=== PATIENT | male | born 1950 | race Caucasian/White ===

== ENCOUNTER 2017-07-13 06:38 | Emergency (ER) | payer MEDICARE, OTHER ==
[2017-07-13 06:45] VITALS: BP 175/87
[2017-07-13] MEDS ORDERED: Acetaminophen/HYDROcodone 325-10 MG Tab PO ONE (07:06)
--- NOTE | 2017-07-13 07:28 | EDM.PDOC ---
ED HPI GENERAL MEDICAL PROBLEM - General Chief Complaint: Genitourinary Problem Stated Complaint: URINARY FREQ. W/PAIN AT LEFT GROIN/ABD/FLANK Time Seen by Provider: 07/13/17 07:00 Source of Information: Reports: Patient, Family (), RN, RN Notes Reviewed History Limitations: Reports: No Limitations - History of Present Illness INITIAL COMMENTS - FREE TEXT/NARRATIVE: Arrives from home with c/o waking around 0400HRS with urinary frequency, and 8/ 10 pain from the left groin & bladder area up through the left abdomen and into the left flank. Denies fever, chills, diarrhea, or constipation. Denies urine being cloudy, dark, bloody, or pink. Admits to mild nausea when the pain was most severe. Denies Hx of urinary or prostate disease. Onset: Today Duration: Constant, Waxing/Waning Location: Reports: Abdomen, Pelvis, Radiates to (left abdomen & flank) Quality: Reports: Ache, Pressure Severity: Severe Improves with: Reports: None Worsens with: Reports: None Associated Symptoms: Reports: No Other Symptoms Bladder Pain Score (Numeric/FACES): 8 - Related Data Allergies Allergy/AdvReac Type Severity Reaction Status Date / Time No Known Allergies Allergy Verified 07/13/17 06:45 Home Meds: Home Meds Psyllium with Sucrose [Metamucil] 1 scoop PO BEDTIME 12/09/13 [History] Naproxen [Naproxen] 500 mg PO BID 05/11/16 [History] Ranitidine [Zantac] 150 mg PO DAILY 05/30/16 [History] Budesonide/Formoterol Fumarate [Symbicort 160-4.5 Mcg Inhaler] 2 puff IH BID 12/23 [History] DULoxetine HCl [Duloxetine HCl] 30 mg PO DAILY 07/13/17 [History] Umeclidinium [place] [Incruse Ellipta*] 1 puff INH DAILY 07/13/17 [History] Past Medical History HEENT History: Reports: None Cardiovascular History: Reports: None Respiratory History: Reports: Asthma, COPD Gastrointestinal History: Reports: GERD Genitourinary History: Reports: None Musculoskeletal History: Reports: Back Pain, Chronic, Osteoarthritis Neurological History: Reports: None Psychiatric History: Reports: None Endocrine/Metabolic History: Reports: Obesity/BMI 30+ Hematologic History: Reports: None Immunologic History: Reports: None Oncologic (Cancer) History: Reports: None Dermatologic History: Reports: None - Past Surgical History Musculoskeletal Surgical History: Reports: Other (See Below) Social & Family History - Family History Family Medical History: Noncontributory - Tobacco Use Smoking Status *Q: Never Smoker Years of Tobacco use: 40 Used Tobacco, but Quit: Yes Month Tobacco Last Used: 2 Second Hand Smoke Exposure: No - Caffeine Use Caffeine Use: Reports: Coffee, Soda - Alcohol Use Days Per Week of Alcohol Use: 0 - Recreational Drug Use Recreational Drug Use: No - Living Situation & Occupation Living situation: Reports: , with Family Occupation: Retired ED ROS GENERAL - Review of Systems Review Of Systems: ROS reveals no pertinent complaints other than HPI. ED EXAM, RENAL/ - Physical Exam Exam: See Below Exam Limited By: No Limitations General Appearance: Alert, WD/WN, No Apparent Distress, Obese, Other ( uncomfortable but non-toxic appearing) Throat/Mouth: Normal Voice, No Airway Compromise Head: Atraumatic, Normocephalic Respiratory/Chest: No Respiratory Distress Cardiovascular: Regular Rate, Rhythm GI/Abdominal: Normal Bowel Sounds, Soft, No Distention, No Abnormal Bruit. No: Guarding Course - Vital Signs Last Recorded V/S: Last Vital Signs Temp 35.1 C L 07/13/17 06:41 Pulse 80 07/13/17 06:41 Resp 18 07/13/17 06:41 BP 175/87 H 07/13/17 06:41 Pulse Ox 99 07/13/17 06:41 - Orders/Labs/Meds Orders: Active Orders 24 hr Category Date Time Status Abdomen Pelvis wo Cont [CT] Urgent Exams 07/13/17 07:07 Ordered Tamsulosin [Flomax] Med 07/13/17 08:59 Once 0.4 mg PO ONETIME ONE Labs: Laboratory Tests 07/13/17 07/13/17 07/13/17 Range/Units 06:55 07:25 07:25 WBC 7.3 (5.0-10.0) 10^3/uL RBC 5.42 (4.6-6.2) 10^6/uL Hgb 15.2 D (14.0-18.0) g/dL Hct 46.5 (40.0-54.0) % MCV 85.8 (80-100) fL MCH 28.0 (27.0-34.0) pg MCHC 32.7 L (33.0-35.0) g/dL Plt Count 209 D (150-450) 10^3/uL Neut % (Auto) 61.8 (42.2-75.2) % Lymph % (Auto) 24.0 (20.5-50.1) % [place] % (Auto) 10.6 H (2-8) % Eos % (Auto) 3.3 H (1.0-3.0) % Baso % (Auto) 0.3 (0.0-1.0) % Sodium 140 (135-145) mmol/L Potassium 3.5 L (3.6-5.0) mmol/L Chloride 103 (101-111) mmol/L Carbon Dioxide 25.0 (21.0-31.0) mmol/L Anion Gap 15.5 BUN 18 (7-18) mg/dL Creatinine 1.5 H (0.6-1.3) mg/dL Est Cr Clr Drug Dosing 50.90 mL/min Estimated GFR (MDRD) 47 BUN/Creatinine Ratio 12.00 Glucose 123 H (74-105) mg/dL Calcium 9.0 (8.4-10.2) mg/dl Total Bilirubin 0.8 (0.2-1.0) mg/dL AST 45 H (10-42) IU/L ALT 64 H (10-60) IU/L Alkaline Phosphatase 103 (42-121) IU/L Total Protein 7.5 (6.7-8.2) g/dl Albumin 4.0 (3.2-5.5) g/dl Globulin 3.5 Albumin/Globulin Ratio 1.14 Urine Color Yellow (YELLOW) Urine Appearance Clear (CLEAR) Urine pH 5.5 (5.0-9.0) Ur Specific [place] >= 1.030 (1.005-1.030) Urine Protein Negative (NEGATIVE) Urine Glucose (UA) Negative (NEGATIVE) Urine Ketones Negative (NEGATIVE) Urine Occult Blood Negative (NEGATIVE) Urine Nitrite Negative (NEGATIVE) Urine Bilirubin Negative (NEGATIVE) Urine Urobilinogen 0.2 (0.2-1.0) mg/dL Ur Leukocyte Esterase Negative (NEGATIVE) Urine RBC Not seen /HPF Urine WBC 0-5 (0-5/HPF) /HPF Ur Epithelial Cells Occasional /HPF Urine Bacteria Rare (0-FEW/HPF) /HPF Urine Mucus Occasional /LPF Meds: Medications Discontinued Medications Generic Name Dose Route Start Last Admin Trade Name Andrés PRN Reason Stop Dose Admin Hydrocodone Bitart/Acetaminophen 1 tab 07/13/17 07:06 07/13/17 07:13 [place] 325-10 Mg PO 07/13/17 07:07 1 tab ONETIME ONE Administration Hydromorphone HCl 1 mg 07/13/17 07:31 07/13/17 07:51 Dilaudid IVPUSH 07/13/17 07:32 1 mg ONETIME ONE Administration Ketorolac Tromethamine 30 mg 07/13/17 07:31 07/13/17 07:49 Toradol IVPUSH 07/13/17 07:32 30 mg ONETIME ONE Administration Ondansetron HCl 4 mg 07/13/17 07:31 07/13/17 07:49 Zofran IV 07/13/17 07:32 4 mg ONETIME ONE Administration - Radiology Interpretation Free Text/Narrative:: CT Abd/Pelvis: 2mm x 4mm x 4mm stone at left UVJ w/hydronephronephrosis, fatty liver infiltrate, osteopenia w/L4 vert. body compression per Rad. report. CT Results Date: 07/13/17 CT Results Time: 08:43 Departure - Departure Time of Disposition: 09:01 Disposition: Home, Self-Care 01 Condition: Good Clinical Impression: Calculus of kidney and ureter, Kidney stone - Discharge Information Instructions: Kidney Stones, [id number] Forms: ED Department Discharge Additional Instructions: Rx: Flomax 0.4mg Rx: Oxycodone APAP 10mg/325mg *Do not drive while under the influence of this medication. Rx: Zofran 4mg Rx: Cipro 500mg Drink plenty of water. Follow up with your doctor in clinic in the next 5 to 7 days for recheck. Have your doctor review your lab results and CT scan report from today's ER visit at your appointment. Ask your doctor to about the incidental findings in the ER of elevated liver enzymes and fatty liver infiltrate on CT scan, and of osteopenia and 4th lumbar vertebral compression fracture. Return to the ER if you develop a fever, have uncontrolled pain, or cannot pass your urine. - My Orders Last 24 Hours: My Active Orders 07/13/17 07:07 Abdomen Pelvis wo Cont [CT] Urgent 07/13/17 08:59 Tamsulosin [Flomax] 0.4 mg PO ONETIME ONE - Assessment/Plan Last 24 Hours: My Active Orders 07/13/17 07:07 Abdomen Pelvis wo Cont [CT] Urgent 07/13/17 08:59 Tamsulosin [Flomax] 0.4 mg PO ONETIME ONE
[2017-07-13] MEDS ORDERED: Ondansetron 4 MG/2 ML SDV IV ONE (07:31)
[2017-07-13] MEDS ORDERED: Ketorolac 30 MG/ML SDV IVPUSH ONE (07:31)
[2017-07-13] MEDS ORDERED: HYDROmorphone 1 MG/ML Syringe IVPUSH ONE (07:31)
[2017-07-13] MEDS ORDERED: Tamsulosin 0.4 MG Cap.ER PO ONE (08:59)
== END 2017-07-13 09:29 | disposition home or self-care (01) ==
LOC: DL.ED 06:38
DX: N13.2 Hydronephrosis with renal and ureteral calculous obstruction (principal); J45.909 Unspecified asthma, uncomplicated; Z79.899 Other long term (current) drug therapy
CPT/HCPCS: 36415; 74176; 80053; 81001; 85025; 96374; 96375; 99284; A9270; J1170; J1885; J2405

== ENCOUNTER 2020-12-25 13:14 | Observation (INO) | payer MEDICARE, OTHER ==
[2020-12-25] MEDS ORDERED: Lactated Ringers 1,000 ML IV ONE (14:13)
[2020-12-25] MEDS ORDERED: HYDROmorphone 0.5 MG/0.5 ML Syringe IVPUSH PRN (14:14)
[2020-12-25] MEDS ORDERED: Ondansetron 4 MG/2 ML SDV IV ONE (14:14)
[2020-12-25 14:28] LABS: ANION GAP 15.8 mEq/L (7-13); CHLORIDE,CL 104 mmol/L (98-107); SODIUM,NA 142 mmol/L (136-145)
[2020-12-25] MEDS ORDERED: HYDROmorphone 0.5 MG/0.5 ML Syringe IVPUSH ONE (15:34)
[2020-12-25] MEDS ORDERED: Iopamidol 612 MG/ML 50 ML SDV IVPUSH ONE (16:25)
[2020-12-25] MEDS ORDERED: Iopamidol 612 MG/ML 100 ML Bottle IVPUSH ONE (16:25)
--- NOTE | 2020-12-25 17:35 | CR ---
PROCEDURE INFORMATION: Exam: XR Abdomen Exam date and time: 12/25/2020 3:45 PM Age: 70 years old Clinical indication: Other: Right sided pain; Additional info: R sided abd pain TECHNIQUE: Imaging protocol: XR of the abdomen. Views: Frontal supine view of the abdomen. 1 View. Total images: 2 COMPARISON: CT Abdomen Pelvis wo Cont 07/13/2017 7:15 AM FINDINGS: Limitations: The entire right and left aspects of the abdomen as well as the most inferior aspect of the pelvis not included on this examination. Gastrointestinal tract: The visualized portions of the bowel gas pattern are nonspecific. Minimal to moderate stool. Bones/joints: Old rib fractures. Degenerative changes of spine. IMPRESSION: The visualized portions of the bowel gas pattern showing nonspecific bowel gas pattern with moderate stool.
--- NOTE | 2020-12-25 17:43 | CT ---
PROCEDURE INFORMATION: Exam: CT Abdomen And Pelvis With Contrast Exam date and time: 12/25/2020 4:58 PM Age: 70 years old Clinical indication: Other: Right sided pain, wbc 11,000; Additional info: Ruq abd pain TECHNIQUE: Imaging protocol: Computed tomography of the abdomen and pelvis with contrast. Total images: 499 Radiation optimization: All CT scans at this facility use at least one of these dose optimization techniques: automated exposure control; mA and/or kV adjustment per patient size (includes targeted exams where dose is matched to clinical indication); or iterative reconstruction. Contrast material: [id number]; Contrast volume: 150 ml; Contrast route: INTRAVENOUS (IV); COMPARISON: CT Abdomen Pelvis wo Cont 07/13/2017 7:15 AM FINDINGS: Liver: Hepatic steatosis. Gallbladder and bile ducts: Normal. No calcified stones. No ductal dilation. Pancreas: Normal. No ductal dilation. Spleen: Normal. No splenomegaly. Adrenal glands: Normal. No mass. Kidneys and ureters: Bilateral perinephric stranding right greater than left. Small calculus lower pole left kidney. 5 mm calculus distal left ureter. No left hydronephrosis. There is mild right hydronephrosis and right hydroureter. Suggestion of tiny 2 mm calculus distal right ureter just proximal to the right UVJ seen on image 132, series 2. Right periureteric stranding. Stomach and bowel: Colonic diverticula. Appendix: No evidence of appendicitis. Intraperitoneal space: Unremarkable. No free air. No significant fluid collection. Vasculature: Moderate atherosclerotic changes of the abdominal aorta and branches. Lymph nodes: Unremarkable. No enlarged lymph nodes. Urinary bladder: Urachal remnant again noted. Reproductive: Unremarkable as visualized. Bones/joints: Degenerative changes lumbar spine with extensive vertebral body spurring. Soft tissues: Bilateral inguinal hernias containing fat. IMPRESSION: 1. [id number] right hydronephrosis and right hydroureter with suggestion of tiny 2 mm calculus distal right ureter. Right perinephric and right periureteric stranding. Correlate for any evidence of underlying urinary tract infection. 2. 5 mm calculus distal left ureter. No definite left hydronephrosis. 3. Hepatic steatosis. 4. See above for other details.
--- NOTE | 2020-12-25 20:08 | EDM.PDOC ---
ED HPI GENERAL MEDICAL PROBLEM - General Chief Complaint: Abdominal Pain Stated Complaint: ABD PAIN Time Seen by Provider: 12/25/20 13:30 - History of Present Illness INITIAL COMMENTS - FREE TEXT/NARRATIVE: Satnam is a 70-year-old man who presents with 3-day history of increasing right upper quadrant and right-sided abdominal pain. He states it started the day before yesterday, but got significantly worse last night and this morning. He states he barely slept at all last night because of the pain. He states it started out as a dull diffuse pain throughout his abdomen, and now has become a sharp stabbing pain in his upper abdomen on the right side including to the back and flank. He also reports a little bit of radiation into his right groin as well. He does think that he might of had a fever off and on today. Satnam has no past history of kidney stones. Right Abdominal Pain Score (Numeric/FACES): 7 - Related Data Allergies Allergy/AdvReac Type Severity Reaction Status Date / Time No Known Allergies Allergy Verified 07/13/17 06:45 Home Meds: Home Meds Psyllium with Sucrose [Metamucil] 1 scoop PO BEDTIME 12/09/13 [History] Naproxen 500 mg PO BID 05/11/16 [History] Ranitidine [Zantac] 150 mg PO DAILY 05/30/16 [History] Budesonide/Formoterol Fumarate [Symbicort 160-4.5 Mcg Inhaler] 2 puff IH BID 12/23 [History] DULoxetine HCl [Duloxetine HCl] 30 mg PO DAILY 07/13/17 [History] Umeclidinium [place] [Incruse Ellipta*] 1 puff INH DAILY 07/13/17 [History] Past Medical History HEENT History: Reports: None Cardiovascular History: Reports: None Respiratory History: Reports: Asthma, COPD Gastrointestinal History: Reports: GERD Genitourinary History: Reports: None Musculoskeletal History: Reports: Back Pain, Chronic, Osteoarthritis Neurological History: Reports: None Psychiatric History: Reports: None Endocrine/Metabolic History: Reports: Obesity/BMI 30+ Hematologic History: Reports: None Immunologic History: Reports: None Oncologic (Cancer) History: Reports: None Dermatologic History: Reports: None - Past Surgical History Musculoskeletal Surgical History: Reports: Other (See Below) Other Musculoskeletal Surgeries/Procedures:: back surgery, broken collar bone, broken ribs Social & Family History - Family History Family Medical History: No Pertinent Family History - Tobacco Use Tobacco Use Status *Q: Never Tobacco User - Caffeine Use Caffeine Use: Reports: Coffee, Soda - Recreational Drug Use Recreational Drug Use: No - Living Situation & Occupation Living situation: Reports: , with Family Occupation: Retired ED ROS GENERAL - Review of Systems Review Of Systems: Comprehensive ROS is negative, except as noted in HPI. ED EXAM, RENAL/ - Physical Exam Exam: See Below Text/Narrative:: General: Satnam is a pleasant 70-year-old man in no acute distress Oropharynx is clear, mucous membranes are tacky to dry Neck: Supple, no lymphadenopathy Heart: Regular rate and rhythm, 1 out of 6 systolic murmur heard throughout Lungs: Clear to auscultation throughout Abdomen: He is morbidly obese, he has a large diastases frontally. He does have diffuse tenderness on his right side. Normal bowel sounds heard in all 4 quadrants Plan upright x-ray of the abdomen was not all that helpful but unfortunately because of his body habitus CT of the abdomen and pelvis showed significant perinephric stranding on the right with a very small right ureteral stone and a 5 mm left ureteral stone. I discussed his case with Dr. Rizo in urology at [facility], after reviewing CT scan reviewing the clinical data with me, he stated that he would not do any kind of urological intervention with him at this time, we could manage him appropriately at our facility. Course - Vital Signs Last Recorded V/S: Last Vital Signs Temp 95.6 F L 12/25/20 14:15 Pulse 96 12/25/20 14:15 Resp 18 12/25/20 14:15 BP 150/66 H 12/25/20 14:15 Pulse Ox 100 12/25/20 14:15 - Orders/Labs/Meds Orders: Active Orders 24 hr Category Date Time Status CORONAVIRUS COVID-19 [facility]ICA [[facility]] Urgent Lab 12/25/20 19:31 Received HYDROmorphone [Dilaudid] Med 12/25/20 14:14 Active 0.5 mg IVPUSH ONETIME PRN Medication Orders Hydromorphone HCl (Hydromorphone 0.5 Mg/0.5 Ml Syringe) 0.5 mg IVPUSH ONETIME PRN PRN Reason: Pain Last Admin: 12/25/20 14:53 Dose: 0.5 mg Documented by: JOSE CARLOS Labs: Laboratory Tests 12/25/20 12/25/20 12/25/20 Range/Units 13:55 13:55 14:07 WBC 11.0 H (5.0-10.0) 10^3/uL RBC 5.14 (4.6-6.2) 10^6/uL Hgb 14.2 (14.0-18.0) g/dL Hct 43.6 (40.0-54.0) % MCV 84.8 (80-100) fL MCH 27.6 (27.0-34.0) pg MCHC 32.6 L (33.0-35.0) g/dL Plt Count 310 D (150-450) 10^3/uL Neut % (Auto) 73.8 (42.2-75.2) % Lymph % (Auto) 13.7 L (20.5-50.1) % [place] % (Auto) 10.5 H (2-8) % Eos % (Auto) 1.6 (1.0-3.0) % Baso % (Auto) 0.4 (0.0-1.0) % Sodium 142 (136-145) mmol/L Potassium 3.8 (3.5-5.1) mmol/L Chloride 104 (98-107) mmol/L Carbon Dioxide 26 (21-32) mmol/L Anion Gap 15.8 H (7-13) mEq/L BUN 14 (7-18) mg/dL Creatinine 1.59 H (0.70-1.30) mg/dL Est Cr Clr Drug Dosing TNP Estimated GFR (MDRD) 43 BUN/Creatinine Ratio 8.8 (No establ ref range) Glucose 113 H (70-99) mg/dL Calcium 9.0 (8.5-10.1) mg/dL Total Bilirubin 0.7 (0.2-1.0) mg/dL AST 37 (15-37) U/L ALT 61 (16-63) U/L Alkaline Phosphatase 124 H (46-116) U/L Total Protein 7.7 (6.4-8.2) g/dL Albumin 3.6 (3.4-5.0) g/dL Globulin 4.1 Albumin/Globulin Ratio 0.9 Lipase 49 L (73-393) U/L Urine Color Yellow (YELLOW) Urine Appearance Slightly cloudy (CLEAR) Urine pH 5.5 (5.0-9.0) Ur Specific [place] >= 1.030 (1.005-1.030) Urine Protein 30 H (NEGATIVE) Urine Glucose (UA) Negative (NEGATIVE) Urine Ketones Negative (NEGATIVE) Urine Occult Blood Moderate H (NEGATIVE) Urine Nitrite Negative (NEGATIVE) Urine Bilirubin Negative (NEGATIVE) Urine Urobilinogen 0.2 (0.2-1.0) mg/dL Ur Leukocyte Esterase Negative (NEGATIVE) Urine RBC 5-10 H /HPF Urine WBC 0-5 (0-5/HPF) /HPF Ur Epithelial Cells Rare (NOT SEEN) /HPF Urine Bacteria Rare (0-FEW/HPF) /HPF Urine Mucus Rare (NOT SEEN) /LPF Meds: Medications Generic Name Dose Route Start Last Admin Trade Name Freq PRN Reason Stop Dose Admin Hydromorphone HCl 0.5 mg 12/25/20 14:14 12/25/20 14:53 Hydromorphone 0.5 Mg/0.5 Ml Syringe IVPUSH 0.5 mg ONETIME PRN Administration Pain Discontinued Medications Generic Name Dose Route Start Last Admin Trade Name Freq PRN Reason Stop Dose Admin Hydromorphone HCl 0.5 mg 12/25/20 15:34 12/25/20 15:40 Hydromorphone 0.5 Mg/0.5 Ml Syringe IVPUSH 12/25/20 15:35 0.5 mg ONETIME ONE Administration Lactated Ringer's 1,000 mls @ 999 mls/hr 12/25/20 14:13 12/25/20 14:52 Ringers, Lactated IV 12/25/20 15:13 999 mls/hr .BOLUS ONE Administration Iopamidol 100 ml 12/25/20 16:25 12/25/20 16:38 Iopamidol 612 Mg/Ml 100 Ml Bottle IVPUSH 12/25/20 16:26 100 ml ONETIME ONE Administration Iopamidol 50 ml 12/25/20 16:25 12/25/20 16:39 Iopamidol 612 Mg/Ml 50 Ml Sdv IVPUSH 12/25/20 16:26 50 ml ONETIME ONE Administration Ondansetron HCl 4 mg 12/25/20 14:14 12/25/20 14:53 Ondansetron 4 Mg/2 Ml Sdv IV 12/25/20 14:15 4 mg ONETIME ONE Administration Departure - Departure Time of Disposition: 20:11 Disposition: Admitted As Inpatient 65 Clinical Impression: Pyelonephritis, acute, Kidney stone - Discharge Information *PRESCRIPTION DRUG MONITORING PROGRAM REVIEWED*: Not Applicable *COPY OF PRESCRIPTION DRUG MONITORING REPORT IN PATIENT CRISTIANA: Not Applicable Sepsis Event Note (ED) - Evaluation Sepsis Screening Result: No Definite Risk - Focused Exam Vital Signs: Vital Signs Temp Pulse Resp BP Pulse Ox 12/25/20 14:15 95.6 F L 96 18 150/66 H 100 - Problem List & Annotations (1) Pyelonephritis, acute SNOMED Code(s): 79367596 Code(s): N10 - ACUTE PYELONEPHRITIS Status: Acute Priority: High Current Visit: Yes Onset Date: ~12/24/20 - Problem List Review Problem List Initiated/Reviewed/Updated: Yes - My Orders Last 24 Hours: My Active Orders 12/25/20 14:14 HYDROmorphone [Dilaudid] 0.5 mg IVPUSH ONETIME PRN 12/25/20 19:31 CORONAVIRUS COVID-19 [facility] [[facility]LE[facility]] Urgent - Assessment/Plan Admission H&P: Please use this note as an admission H&P Last 24 Hours: My Active Orders 12/25/20 14:14 HYDROmorphone [Dilaudid] 0.5 mg IVPUSH ONETIME PRN 12/25/20 19:31 CORONAVIRUS COVID-19 [facility]ERICA [MOLEC] Urgent Assessment:: 1. 70-year-old man with acute pyelonephritis 2. Small left ureteral stone 3. Morbid obesity with large diastases Plan: 1. He is admitted to acute inpatient; as above, I discussed at length his case with Dr. Rizo in urology at [facility]. Based on his evaluation of his CT scan as well as the clinical data, he stated that he would not do any urological intervention with this patient at this time. 2. Unasyn, 3 g IV every 6 hours 3. Morphine, 4 mg IV every hour as needed for pain 4. Recheck CBC and renal panel in a.m. 5. VTE prophylaxis -Lovenox, 40 mg subcu daily
[2020-12-25] MEDS ORDERED: Acetaminophen 325 MG Tab PO PRN (21:10)
[2020-12-25] MEDS ORDERED: Morphine 2 MG/ML SYRINGE IVPUSH PRN (21:10)
[2020-12-25] MEDS ORDERED: Sodium Chloride 0.9% 10 ML Syringe FLUSH PRN (21:10)
[2020-12-25] MEDS ORDERED: Ondansetron 4 MG/2 ML SDV IVPUSH PRN (21:10)
[2020-12-25] MEDS ORDERED: Sodium Chloride 0.9% 1,000 ML IV SCH (21:15)
[2020-12-25] MEDS ORDERED: Piperacillin/Tazobactam 3.375 GM in Sodium Chloride 0.9% 100 ML IV SCH (21:15)
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
[2020-12-25] MEDS ORDERED: Piperacillin/Tazobactam 2.25 GM in Sodium Chloride 0.9% 50 ML IV SCH (22:00)
[2020-12-25] MEDS: Diltiazem 120 MG Cap.CD PO SCH (22:13)
[2020-12-25] MEDS: Tamsulosin 0.4 MG Cap.ER PO SCH (22:13)
[2020-12-25] MEDS ORDERED: RANITIDINE 150 MG PO PRN (22:29)
[2020-12-25] MEDS: Piperacillin/Tazobactam 2.25 GM in Sodium Chloride 0.9% 50 ML IV SCH (22:30)
[2020-12-25] MEDS ORDERED: atorvaSTATin 20 MG Tab PO SCH (22:30)
[2020-12-25] MEDS: Formoterol/Mometasone 200-5 MCG 8.8 GM Inhaler IH SCH (22:59)
[2020-12-26] MEDS: Piperacillin/Tazobactam 2.25 GM in Sodium Chloride 0.9% 50 ML IV SCH ×2 (03:58→09:34)
[2020-12-26 06:28] LABS: ANION GAP 13.7 mEq/L (7-13)
[2020-12-26] MEDS ORDERED: hydrALAZINE 25 MG Tab PO SCH (07:15)
--- NOTE | 2020-12-26 07:16 | PCM.DCSUM1 ---
Discharge Summary - Hospital Course Free Text/Narrative:: START OF DOCTOR EMAM[facility] DISCHARGE SUMMARY Date of Admission: December 25, 2020 Date of Discharge: 7:14 AM on 08/28 2020 Primary Diagnosis: Query right pyelonephritis Secondary Diagnosis: Nephrolithiasis Hepatic steatosis Osteoarthritis Chronic pain Acute versus chronic kidney disease, query baseline creatinine of approximately 1.5 Obstructive sleep apnea Osteopenia Diverticulosis COPD GERD Obesity Anxiety Depression Insomnia Hyperlipidemia Hypertension Anemia Consultations: None Condition on Discharge: Fair Disposition: The patient will be advised follow-up with nephrology within 2 weeks of discharge for diagnosis of chronic kidney disease Discharge Medications: Bactrim DS 1 tab p.o. twice daily. Quantity 14. 0 refills Zantac 150 milligrams p.o. Frequency undefined as needed dyspepsia Hydralazine 50 mg p.o. every 8 hours Cymbalta 30 mg p.o. nightly Symbicort 160/4.5 mc puffs twice daily Lipitor 20 mg p.o. nightly Tylenol PM: Unspecified dose: 2 tabs p.o. nightly END OF DOCTOR EMAM[facility] DISCHARGE SUMMARY - Discharge Data Discharge Date: 12/26/20 Discharge Disposition: Home, Self-Care 01 Condition: Fair - Referral to Home Health Primary Care Physician: Samantha Tavarez NP - Patient Instructions Diet: Heart Healthy Diet, Low Sodium Activity: As Tolerated - Discharge Plan *PRESCRIPTION DRUG MONITORING PROGRAM REVIEWED*: Not Applicable *COPY OF PRESCRIPTION DRUG MONITORING REPORT IN PATIENT CRISTIANA: Not Applicable Prescriptions/Med Rec: hydrALAZINE [Apresoline] 50 mg PO Q8H 30 Days #180 tablet Sulfamethoxazole/Trimethoprim [Bactrim Ds Tablet] 1 each PO BID 7 Days #14 tablet Home Medications: Home Meds Budesonide/Formoterol Fumarate [Symbicort 160-4.5 Mcg Inhaler] 2 puff IH BID 07/13/17 [History] DULoxetine HCl [Duloxetine HCl] 30 mg PO BEDTIME 07/13/17 [History] Acetaminophen/Diphenhydramine [Tylenol Pm Ex-Strength Caplet] 2 each PO BEDTIME 12/25/20 [History] atorvaSTATin [Lipitor] 20 mg PO DAILY 12/25/20 [History] Ranitidine [Zantac] 150 mg PO ASDIRECTED PRN 12/26/20 [Rx] Sulfamethoxazole/Trimethoprim [Bactrim Ds Tablet] 1 each PO BID 7 Days #14 tablet 12/26/20 [Rx] hydrALAZINE [Apresoline] 50 mg PO Q8H 30 Days #180 tablet 12/26/20 [Rx] Forms: ED Department Discharge Referrals: Samantha Tavarez NP [Primary Care Provider] - - Discharge Summary/Plan Comment DC Time >30 min.: No - General Info Functional Status: Reports: Pain Controlled - Review of Systems General: Reports: No Symptoms HEENT: Reports: No Symptoms Pulmonary: Reports: No Symptoms Cardiovascular: Reports: No Symptoms Gastrointestinal: Reports: No Symptoms Genitourinary: Reports: No Symptoms Musculoskeletal: Reports: No Symptoms Skin: Reports: No Symptoms Neurological: Reports: No Symptoms Psychiatric: Reports: No Symptoms - Patient Data Vitals - Most Recent: Last Vital Signs Temp 98.7 F 12/25/20 21:11 Pulse 77 12/25/20 22:13 Resp 20 12/25/20 21:11 BP 150/82 H 12/25/20 22:13 Pulse Ox 92 L 12/25/20 21:11 Weight - Most Recent: 300 lb I&O - Last 24 hours: Intake & Output 12/25/20 12/26/20 12/26/20 22:59 06:59 14:59 Intake Total 500 120 Output Total 300 Balance 500 -180 Lab Results - Last 24 hrs: Laboratory Results - last 24 hr 12/25/20 12/25/20 12/25/20 Range/Units 13:55 13:55 14:07 WBC 11.0 H (5.0-10.0) 10^3/uL RBC 5.14 (4.6-6.2) 10^6/uL Hgb 14.2 (14.0-18.0) g/dL Hct 43.6 (40.0-54.0) % MCV 84.8 (80-100) fL MCH 27.6 (27.0-34.0) pg MCHC 32.6 L (33.0-35.0) g/dL Plt Count 310 D (150-450) 10^3/uL Neut % (Auto) 73.8 (42.2-75.2) % Lymph % (Auto) 13.7 L (20.5-50.1) % [place] % (Auto) 10.5 H (2-8) % Eos % (Auto) 1.6 (1.0-3.0) % Baso % (Auto) 0.4 (0.0-1.0) % Sodium 142 (136-145) mmol/L Potassium 3.8 (3.5-5.1) mmol/L Chloride 104 (98-107) mmol/L Carbon Dioxide 26 (21-32) mmol/L Anion Gap 15.8 H (7-13) mEq/L BUN 14 (7-18) mg/dL Creatinine 1.59 H (0.70-1.30) mg/dL Est Cr Clr Drug Dosing TNP Estimated GFR (MDRD) 43 BUN/Creatinine Ratio 8.8 (No establ ref range) Glucose 113 H (70-99) mg/dL Calcium 9.0 (8.5-10.1) mg/dL Total Bilirubin 0.7 (0.2-1.0) mg/dL AST 37 (15-37) U/L ALT 61 (16-63) U/L Alkaline Phosphatase 124 H (46-116) U/L Total Protein 7.7 (6.4-8.2) g/dL Albumin 3.6 (3.4-5.0) g/dL Globulin 4.1 Albumin/Globulin Ratio 0.9 Lipase 49 L (73-393) U/L Urine Color Yellow (YELLOW) Urine Appearance Slightly cloudy (CLEAR) Urine pH 5.5 (5.0-9.0) Ur Specific [place] >= 1.030 (1.005-1.030) Urine Protein 30 H (NEGATIVE) Urine Glucose (UA) Negative (NEGATIVE) Urine Ketones Negative (NEGATIVE) Urine Occult Blood Moderate H (NEGATIVE) Urine Nitrite Negative (NEGATIVE) Urine Bilirubin Negative (NEGATIVE) Urine Urobilinogen 0.2 (0.2-1.0) mg/dL Ur Leukocyte Esterase Negative (NEGATIVE) Urine RBC 5-10 H /HPF Urine WBC 0-5 (0-5/HPF) /HPF Ur Epithelial Cells Rare (NOT SEEN) /HPF Urine Bacteria Rare (0-FEW/HPF) /HPF Urine Mucus Rare (NOT SEEN) /LPF SARS-CoV-2 RNA (JERICA) (NEGATIVE) 12/25/20 12/26/20 12/26/20 Range/Units 19:31 05:55 05:55 WBC 7.1 (5.0-10.0) 10^3/uL RBC 4.69 (4.6-6.2) 10^6/uL Hgb 12.8 L (14.0-18.0) g/dL Hct 40.7 (40.0-54.0) % MCV 86.8 (80-100) fL MCH 27.3 (27.0-34.0) pg MCHC 31.4 L (33.0-35.0) g/dL Plt Count 246 (150-450) 10^3/uL Neut % (Auto) 61.7 (42.2-75.2) % Lymph % (Auto) 21.8 (20.5-50.1) % [place] % (Auto) 12.8 H (2-8) % Eos % (Auto) 3.4 H (1.0-3.0) % Baso % (Auto) 0.3 (0.0-1.0) % Sodium 143 (136-145) mmol/L Potassium 3.7 (3.5-5.1) mmol/L Chloride 104 (98-107) mmol/L Carbon Dioxide 29 (21-32) mmol/L Anion Gap 13.7 H (7-13) mEq/L BUN 14 (7-18) mg/dL Creatinine 1.60 H (0.70-1.30) mg/dL Est Cr Clr Drug Dosing 45.10 Estimated GFR (MDRD) 43 BUN/Creatinine Ratio 8.8 (No establ ref range) Glucose 112 H (70-99) mg/dL Calcium 8.4 L (8.5-10.1) mg/dL Total Bilirubin 0.7 (0.2-1.0) mg/dL AST 24 (15-37) U/L ALT 46 (16-63) U/L Alkaline Phosphatase 100 (46-116) U/L Total Protein 6.4 (6.4-8.2) g/dL Albumin 3.0 L (3.4-5.0) g/dL Globulin 3.4 Albumin/Globulin Ratio 0.88 Lipase (73-393) U/L Urine Color (YELLOW) Urine Appearance (CLEAR) Urine pH (5.0-9.0) Ur Specific [place] (1.005-1.030) Urine Protein (NEGATIVE) Urine Glucose (UA) (NEGATIVE) Urine Ketones (NEGATIVE) Urine Occult Blood (NEGATIVE) Urine Nitrite (NEGATIVE) Urine Bilirubin (NEGATIVE) Urine Urobilinogen (0.2-1.0) mg/dL Ur Leukocyte Esterase (NEGATIVE) Urine RBC /HPF Urine WBC (0-5/HPF) /HPF Ur Epithelial Cells (NOT SEEN) /HPF Urine Bacteria (0-FEW/HPF) /HPF Urine Mucus (NOT SEEN) /LPF SARS-CoV-2 RNA ([place]) Negative (NEGATIVE) Med Orders - Current: Current Medications Acetaminophen (Acetaminophen 325 Mg Tab) 650 mg PO Q4H PRN PRN Reason: Pain (Mild 1-3)/fever Last Admin: 12/26/20 02:49 Dose: 650 mg Documented by: Acetaminophen (Acetaminophen 500 Mg Tab) 1,000 mg PO BEDTIME LARRY Atorvastatin Calcium (Atorvastatin 20 Mg Tab) 20 mg PO BEDTIME LARRY Last Admin: 12/25/20 22:59 Dose: 20 mg Documented by: Diltiazem HCl (Diltiazem 120 Mg Cap.Cd) 240 mg PO DAILY [facility] Last Admin: 12/25/20 22:13 Dose: 240 mg Documented by: Diphenhydramine HCl (Diphenhydramine 50 Mg Cap) 50 mg PO BEDTIME LARRY Duloxetine HCl (Duloxetine 30 Mg Cap) 30 mg PO BEDTIME LARRY Heparin Sodium (Porcine) (Heparin Sodium 5,000 Units/Ml Vial) 5,000 units SUBCUT Q12HR LARRY Hydralazine HCl (Hydralazine 25 Mg Tab) 50 mg PO Q8H LARRY Hydromorphone HCl (Hydromorphone 0.5 Mg/0.5 Ml Syringe) 0.5 mg IVPUSH ONETIME PRN PRN Reason: Pain Last Admin: 12/25/20 14:53 Dose: 0.5 mg Documented by: Sodium Chloride (Normal Saline) 1,000 mls @ 75 mls/hr IV ASDIRECTED LARRY Last Admin: 12/25/20 22:17 Dose: 75 mls/hr Documented by: Piperacillin Sod/Tazobactam (Sod 2.25 gm/ Sodium Chloride) 50 mls @ 100 mls/hr IV Q6H [facility] Last Infusion: 12/26/20 04:32 Dose: Infused Documented by: Mometasone Furoate/Formoterol Fumar (Formoterol/Mometasone 200-5 Mcg 8.8 Gm Inhaler) 0 puff IH BID [facility] Last Admin: 12/25/20 22:59 Dose: 2 puff Documented by: Morphine Sulfate (Morphine 2 Mg/Ml Syringe) 1 mg IVPUSH Q4H PRN PRN Reason: Pain (severe 7-10) Non-Formulary Medication (Ranitidine [Zantac]) 150 mg PO ASDIRECTED PRN PRN Reason: Heartburn Ondansetron HCl (Ondansetron 4 Mg/2 Ml Sdv) 4 mg IVPUSH Q4H PRN PRN Reason: Nausea/Vomiting Sodium Chloride (Sodium Chloride 0.9% 10 Ml Syringe) 10 ml FLUSH ASDIRECTED PRN PRN Reason: Keep Vein Open Last Admin: 12/25/20 22:23 Dose: 10 ml Documented by: Tamsulosin HCl (Tamsulosin 0.4 Mg Cap.Er) 0.4 mg PO PCBREAKFAST [facility] Last Admin: 12/25/20 22:13 Dose: 0.4 mg Documented by: Discontinued Medications Hydromorphone HCl (Hydromorphone 0.5 Mg/0.5 Ml Syringe) 0.5 mg IVPUSH ONETIME ONE Stop: 12/25/20 15:35 Last Admin: 12/25/20 15:40 Dose: 0.5 mg Documented by: Lactated Ringer's (Ringers, Lactated) 1,000 mls @ 999 mls/hr IV .BOLUS ONE Stop: 12/25/20 15:13 Last Admin: 12/25/20 14:52 Dose: 999 mls/hr Documented by: Piperacillin Sod/Tazobactam (Sod 3.375 gm/ Sodium Chloride) 100 mls @ 200 mls/hr IV Q6H [facility] Last Admin: 12/25/20 22:48 Dose: Not Given Documented by: Piperacillin Sod/Tazobactam (Sod 2.25 gm/ Sodium Chloride) 50 mls @ 100 mls/hr IV Q6H [facility] Last Admin: 12/25/20 22:49 Dose: Not Given Documented by: Iopamidol (Iopamidol 612 Mg/Ml 100 Ml Bottle) 100 ml IVPUSH ONETIME ONE Stop: 12/25/20 16:26 Last Admin: 12/25/20 16:38 Dose: 100 ml Documented by: Iopamidol (Iopamidol 612 Mg/Ml 50 Ml Sdv) 50 ml IVPUSH ONETIME ONE Stop: 12/25/20 16:26 Last Admin: 12/25/20 16:39 Dose: 50 ml Documented by: Ondansetron HCl (Ondansetron 4 Mg/2 Ml Sdv) 4 mg IV ONETIME ONE Stop: 12/25/20 14:15 Last Admin: 12/25/20 14:53 Dose: 4 mg Documented by: - Exam General: Reports: Alert, Oriented HEENT: Reports: Pupils Equal, Pupils Reactive, EOMI, Mucous Membr. Moist/[place] Neck: Reports: Supple Lungs: Reports: Clear to Auscultation, Normal Respiratory Effort Cardiovascular: Reports: Regular Rate, Regular Rhythm GI/Abdominal Exam: Normal Bowel Sounds, Soft, Non-Tender, No Organomegaly, No Distention, No Abnormal Bruit, No Mass, Pelvis Stable (Male) Exam: No Hernia, Normal Inspection, Normal Prostate, Circumcised Rectal (Males) Exam: Normal Exam, Normal Rectal Tone, Prostate Normal Back Exam: Reports: Normal Inspection, Full Range of Motion Extremities: Normal Inspection, Normal Range of Motion, Non-Tender, No Pedal Edema, Normal Capillary Refill Skin: Reports: Warm, Dry, Intact Wound/Incisions: Reports: Healing Well Neurological: Reports: No New Focal Deficit Psy/Mental Status: Reports: Alert, Normal Affect, Normal Mood
[2020-12-26] MEDS: Tamsulosin 0.4 MG Cap.ER PO SCH (07:48)
[2020-12-26 08:29] VITALS: PULSE 80
[2020-12-26] MEDS ORDERED: Heparin Sodium 5,000 Units/ML Vial SUBCUT SCH (09:00)
[2020-12-26] MEDS: Formoterol/Mometasone 200-5 MCG 8.8 GM Inhaler IH SCH (09:22)
[2020-12-26] MEDS: Diltiazem 120 MG Cap.CD PO SCH (09:23)
[2020-12-26 09:29] VITALS: BP 103/50
[2020-12-26] MEDS ORDERED: Acetaminophen 500 MG Tab PO SCH (21:00)
[2020-12-26] MEDS ORDERED: DULoxetine 30 MG Cap PO SCH (21:00)
[2020-12-26] MEDS ORDERED: diphenhydrAMINE 50 MG Cap PO SCH (21:00)
== END 2020-12-26 10:40 | disposition home or self-care (01) ==
LOC: DL.ED 13:14 → DL.MS 19:32 → INTOOBSV 19:32
PROVIDERS: ADMIT Internal Medicine; ATTEND Internal Medicine
DX: N13.2 Hydronephrosis with renal and ureteral calculous obstruction (principal); J44.9 Chronic obstructive pulmonary disease, unspecified; K76.0 Fatty (change of) liver, not elsewhere classified; G89.29 Other chronic pain; G47.33 Obstructive sleep apnea (adult) (pediatric); M85.80 Other specified disorders of bone density and structure, unspecified site; K21.9 Gastro-esophageal reflux disease without esophagitis; E66.01 Morbid (severe) obesity due to excess calories; Z79.899 Other long term (current) drug therapy; Z98.890 Other specified postprocedural states; Z87.891 Personal history of nicotine dependence; Z20.822 Contact with and (suspected) exposure to COVID-19; Z68.41 Body mass index [BMI] 40.0-44.9, adult
CPT/HCPCS: 36415; 74018; 74177; 80053; 81001; 82728; 83540; 83550; 83690; 85025; 96374; 96375; 96376; 99217; 99219; 99284; 99285; A9270; J1170; J1644; J2405; J2543; J7030; J7120; Q9967; U0002; 96365; 96366; 96372; G0378

== ENCOUNTER 2020-12-27 01:31 | Emergency (ER) | payer MEDICARE, OTHER ==
[2020-12-27] MEDS ORDERED: Sodium Chloride 0.9% 1,000 ML IV ONE (01:37)
[2020-12-27] MEDS ORDERED: Ketorolac 30 MG/ML SDV IVPUSH ONE (01:38)
[2020-12-27] MEDS ORDERED: Tamsulosin 0.4 MG Cap.ER PO ONE (01:41)
[2020-12-27] MEDS ORDERED: HYDROmorphone 0.5 MG/0.5 ML Syringe IVPUSH ONE (01:41)
[2020-12-27 01:57] VITALS: BP 109/87; PULSE 84
--- NOTE | 2020-12-27 02:03 | EDM.PDOC ---
ED HPI GENERAL MEDICAL PROBLEM - General Stated Complaint: right side pain Time Seen by Provider: 12/27/20 01:50 Source of Information: Reports: Patient History Limitations: Reports: No Limitations - History of Present Illness INITIAL COMMENTS - FREE TEXT/NARRATIVE: This 70 yo male patient reports to the ED with right flank pain. The patient originally reported he had been in the hospital for kidney stones, but later reports he was in the hospital until this morning due to pyelonephritis as well as 2 kidney stones. The patient reports he was discharged with Bactrim and a blood medication, but was not given the blood pressure medication due to his blood pressure being low. The patient reports he has been doing fine until just prior to arrival in the ED. Onset: Today, Sudden Duration: Constant Location: Reports: Back (right flank pain) Quality: Reports: Ache, Sharp Severity: Moderate Improves with: Reports: None Worsens with: Reports: None Context: Reports: Other Associated Symptoms: Reports: No Other Symptoms Right Flank Pain Score (Numeric/FACES): 8 - Related Data Allergies Allergy/AdvReac Type Severity Reaction Status Date / Time No Known Allergies Allergy Verified 12/25/20 21:13 Home Meds: Home Meds Budesonide/Formoterol Fumarate [Symbicort 160-4.5 Mcg Inhaler] 2 puff IH BID 07/13/17 [History] DULoxetine HCl [Duloxetine HCl] 30 mg PO BEDTIME 07/13/17 [History] Acetaminophen/Diphenhydramine [Tylenol Pm Ex-Strength Caplet] 2 each PO BEDTIME 12/25/20 [History] atorvaSTATin [Lipitor] 20 mg PO DAILY 12/25/20 [History] Ranitidine [Zantac] 150 mg PO ASDIRECTED PRN 12/26/20 [Rx] Sulfamethoxazole/Trimethoprim [Bactrim Ds Tablet] 1 each PO BID 7 Days #14 tablet 12/26/20 [Rx] hydrALAZINE [Apresoline] 50 mg PO Q8H 30 Days #180 tablet 12/26/20 [Rx] Past Medical History HEENT History: Reports: None, Hard of Hearing, Other (See Below) Other HEENT History: waxy ears. Reading glases. Upper dentures. Cardiovascular History: Reports: None Respiratory History: Reports: Asthma, COPD Gastrointestinal History: Reports: GERD Genitourinary History: Reports: None Musculoskeletal History: Reports: Back Pain, Chronic, Osteoarthritis Neurological History: Reports: None Psychiatric History: Reports: None Endocrine/Metabolic History: Reports: Obesity/BMI 30+ Hematologic History: Reports: None Immunologic History: Reports: None Oncologic (Cancer) History: Reports: None Dermatologic History: Reports: None - Infectious Disease History Infectious Disease History: Reports: Chicken Pox, Measles - Past Surgical History Musculoskeletal Surgical History: Reports: Other (See Below) Other Musculoskeletal Surgeries/Procedures:: back surgery, broken collar bone, broken ribs Social & Family History - Family History Family Medical History: No Pertinent Family History - Caffeine Use Caffeine Use: Reports: Coffee, Soda - Living Situation & Occupation Living situation: Reports: , with Family Occupation: Retired ED ROS GENERAL - Review of Systems Review Of Systems: Comprehensive ROS is negative, except as noted in HPI. ED EXAM, RENAL/ - Physical Exam Exam: See Below Exam Limited By: No Limitations General Appearance: Alert, WD/WN, Moderate Distress, Obese Eye Exam: Bilateral Eye: EOMI, Normal Inspection, PERRL Ears: Normal External Exam, Normal Canal, Hearing Grossly Normal, Normal TMs Nose: Normal Inspection, Normal Mucosa, No Blood Throat/Mouth: Normal Inspection, Normal Lips, Normal Teeth, Normal Gums, Normal Oropharynx, Normal Voice, No Airway Compromise Head: Atraumatic, Normocephalic Neck: Normal Inspection, Supple, Non-Tender, Full Range of Motion Respiratory/Chest: No Respiratory Distress, Lungs Clear, Normal Breath Sounds, No Accessory Muscle Use, Chest Non-Tender Cardiovascular: Normal Peripheral Pulses GI/Abdominal: Normal Bowel Sounds, Soft, Non-Tender, No Organomegaly, No Distention, No Abnormal Bruit, No Mass (Male) Exam: Deferred Rectal (Males) Exam: Deferred Back Exam: Normal Inspection, Full Range of Motion, Other (Reports right flank pain, but no CVA tenderness.) Extremities: Normal Inspection, Normal Range of Motion, Non-Tender, Normal Capillary Refill, No Pedal Edema Neurological: Alert, Oriented, CN II-XII Intact, Normal Cognition, Normal Gait, Normal Reflexes, No Motor/Sensory Deficits Psychiatric: Normal Affect, Normal Mood Skin Exam: Warm, Dry, Intact, Normal Color, No Rash Lymphatic: No Adenopathy Course - Vital Signs Last Recorded V/S: Last Vital Signs Temp 97 F 12/27/20 01:53 Pulse 84 06/22/21 01:53 Resp 16 12/27/20 01:53 BP 109/87 12/27/20 01:53 Pulse Ox 95 12/27/20 01:53 - Orders/Labs/Meds Orders: Active Orders 24 hr Category Date Time Status Abdomen Pelvis wo Cont [CT] Urgent Exams 12/27/20 02:17 Ordered UA RFX CARLOS AND CULT IF INDIC [URIN] Urgent Lab 12/27/20 01:36 Ordered Acetaminophen/HYDROcodone [[place] 325-10 MG] Med 12/27/20 04:22 Once 1 tab PO ONETIME ONE Labs: Laboratory Tests 12/27/20 12/27/20 Range/Units 01:43 01:43 WBC 8.0 (5.0-10.0) 10^3/uL RBC 4.63 (4.6-6.2) 10^6/uL Hgb 12.9 L (14.0-18.0) g/dL Hct 39.6 L (40.0-54.0) % MCV 85.5 (80-100) fL MCH 27.9 (27.0-34.0) pg MCHC 32.6 L (33.0-35.0) g/dL Plt Count 242 (150-450) 10^3/uL Neut % (Auto) 59.9 (42.2-75.2) % Lymph % (Auto) 23.6 (20.5-50.1) % [place] % (Auto) 12.9 H (2-8) % Eos % (Auto) 3.3 H (1.0-3.0) % Baso % (Auto) 0.3 (0.0-1.0) % Sodium 137 (136-145) mmol/L Potassium 3.5 (3.5-5.1) mmol/L Chloride 103 (98-107) mmol/L Carbon Dioxide 26 (21-32) mmol/L Anion Gap 11.5 (7-13) mEq/L BUN 19 H (7-18) mg/dL Creatinine 1.82 H (0.70-1.30) mg/dL Est Cr Clr Drug Dosing 40.86 mL/min Estimated GFR (MDRD) 37 BUN/Creatinine Ratio 10.4 (No establ ref range) Glucose 118 H (70-99) mg/dL Calcium 8.8 (8.5-10.1) mg/dL Total Bilirubin 0.7 (0.2-1.0) mg/dL AST 23 (15-37) U/L ALT 45 (16-63) U/L Alkaline Phosphatase 106 (46-116) U/L Total Protein 7.0 (6.4-8.2) g/dL Albumin 3.3 L (3.4-5.0) g/dL Globulin 3.7 Albumin/Globulin Ratio 0.89 Meds: Medications Discontinued Medications Generic Name Dose Route Start Last Admin Trade Name Freq PRN Reason Stop Dose Admin Hydromorphone HCl 0.5 mg 12/27/20 01:41 12/27/20 01:46 Hydromorphone 0.5 Mg/0.5 Ml Syringe IVPUSH 12/27/20 01:42 0.5 mg ONETIME ONE Administration Sodium Chloride 1,000 mls @ 999 mls/hr 12/27/20 01:37 12/27/20 01:46 Normal Saline IV 12/27/20 02:37 999 mls/hr .BOLUS ONE Administration Ketorolac Tromethamine 30 mg 12/27/20 01:38 Ketorolac 30 Mg/Ml Sdv IVPUSH 12/27/20 01:39 ONETIME ONE Tamsulosin HCl 0.4 mg 12/27/20 01:41 12/27/20 01:46 Tamsulosin 0.4 Mg Cap.Er PO 12/27/20 01:42 0.4 mg ONETIME ONE Administration Departure - Departure Time of Disposition: 04:22 Disposition: Home, Self-Care 01 Condition: Fair Clinical Impression: Pyelonephritis - Discharge Information *PRESCRIPTION DRUG MONITORING PROGRAM REVIEWED*: Not Applicable *COPY OF PRESCRIPTION DRUG MONITORING REPORT IN PATIENT CRISTIANA: Not Applicable Instructions: Pyelonephritis, Adult, [id number] Forms: ED Department Discharge Care Plan Goals: The patient and his were advised of the examination and lab results. After waiting for 1 1/[address] to be read, the patient was discharged the patient's will be called if the reading of the CT shows any abnormalities and with a prescription for [place] (5) #8 to take 1 by mouth every 6 hours as needed for pain. If the patient has any additional symptoms or concerns, the patient should either return to the emergency department or visit his primary care facility. Sepsis Event Note (ED) - Focused Exam Vital Signs: Vital Signs Temp Pulse Resp BP Pulse Ox 12/27/20 01:53 97 F 84 16 109/87 95 - My Orders Last 24 Hours: My Active Orders 12/27/20 01:36 UA RFX CARLOS AND CULT IF INDIC [URIN] Urgent 12/27/20 02:17 Abdomen Pelvis wo Cont [CT] Urgent 12/27/20 04:22 Acetaminophen/HYDROcodone [[place] 325-10 MG] 1 tab PO ONETIME ONE - Assessment/Plan Last 24 Hours: My Active Orders 12/27/20 01:36 UA RFX CARLOS AND CULT IF INDIC [URIN] Urgent 12/27/20 02:17 Abdomen Pelvis wo Cont [CT] Urgent 12/27/20 04:22 Acetaminophen/HYDROcodone [[place] 325-10 MG] 1 tab PO ONETIME ONE
[2020-12-27 02:06] LABS: ANION GAP 11.5 mEq/L (7-13)
[2020-12-27] MEDS ORDERED: Acetaminophen/HYDROcodone 325-10 MG Tab PO ONE (04:22)
--- NOTE | 2020-12-27 05:02 | CT ---
PROCEDURE INFORMATION: Exam: CT Abdomen And Pelvis Without Contrast Exam date and time: 12/27/2020 2:44 AM Age: 70 years old Clinical indication: Right flank pain. TECHNIQUE: Imaging protocol: Computed tomography of the abdomen and pelvis without contrast. Radiation optimization: All CT scans at this facility use at least one of these dose optimization techniques: automated exposure control; mA and/or kV adjustment per patient size (includes targeted exams where dose is matched to clinical indication); or iterative reconstruction. COMPARISON: CT Abdomen/Pelvis 12/25/2020 4:58 PM FINDINGS: Trace atelectasis/scarring at the lung bases. 2 mm stone remains in the distal right ureter just proximal to the ureterovesical junction. Associated mild right hydroureteronephrosis and perinephric/periureteral stranding are present which are similar to the comparison examination. 4 mm stone remains in the distal left ureter just proximal to the ureterovesical junction without associated ureteral dilatation or hydronephrosis. Additional 3 mm left renal collecting system stone is present. Excreted urinary contrast from previous intravenous contrast load is present in the right renal collecting system, ureter, and urinary bladder. Kidneys are otherwise unremarkable by unenhanced examination. Liver is mildly decreased in attenuation compatible with mild fatty infiltration. Solid abdominal organs are otherwise unremarkable by unenhanced examination. The gallbladder is fluid filled. No radiopaque gallstones or biliary ductal dilatation. Scattered colonic diverticula without associated inflammatory changes. Bowel is otherwise unremarkable by unenhanced examination. Normal appendix is identified. Aortoiliac atherosclerotic calcification. No abdominal aortic aneurysm. No abdominal or pelvic lymphadenopathy. The urinary bladder is nondistended. Incidental urachal remnant is present. No free intraperitoneal air or fluid. Osseous structures are intact. Degenerative changes involve the spine. There is partial osseous fusion of the L3 and L4 vertebral bodies. IMPRESSION: 1. 2 mm distal right ureteral stone with associated mild right hydroureteronephrosis without significant change relative to comparison examination. 2. 4 mm distal left ureteral stone without ureteral dilatation or hydronephrosis. This was also present on comparison examination. 3. Small nonobstructing left renal collecting system stone. 4. Mild fatty infiltration of the liver. 5. Mild colonic diverticulosis without evidence of diverticulitis.
== END 2020-12-27 04:35 | disposition home or self-care (01) ==
LOC: DL.ED 01:31
DX: N12 Tubulo-interstitial nephritis, not specified as acute or chronic (principal); J44.9 Chronic obstructive pulmonary disease, unspecified; K21.9 Gastro-esophageal reflux disease without esophagitis; E66.9 Obesity, unspecified; Z68.41 Body mass index [BMI] 40.0-44.9, adult; Z79.899 Other long term (current) drug therapy
CPT/HCPCS: 36415; 74176; 80053; 85025; 96374; 99284; A9270; J1170; J7030; 99283

== ENCOUNTER 2022-07-01 18:58 | Emergency (ER) | payer MEDICARE, OTHER ==
[2022-07-01] MEDS ORDERED: Sodium Chloride 0.9% 10 ML Syringe FLUSH PRN (19:31)
[2022-07-01 19:42] VITALS: BP 201/116; PULSE 93
[2022-07-01 20:40] LABS: CORONAVIRUS COVID-19 NAA NEGATIVE (NEGATIVE); RESPIRATORY SYNCYTIAL VIR NAA NEGATIVE (NEGATIVE)
== END 2022-07-01 20:59 | disposition home or self-care (01) ==
LOC: DL.ED 18:58
DX: K52.9 Noninfective gastroenteritis and colitis, unspecified (principal); J44.9 Chronic obstructive pulmonary disease, unspecified; E66.9 Obesity, unspecified; Z68.36 Body mass index [BMI] 36.0-36.9, adult; Z79.899 Other long term (current) drug therapy; Z20.822 Contact with and (suspected) exposure to COVID-19
CPT/HCPCS: 0241U; 36415; 80053; 83690; 85025; 99284; J3490

== ENCOUNTER 2022-11-10 16:49 | Emergency (ER) | payer MEDICARE, OTHER ==
[2022-11-10] MEDS ORDERED: Diphtheria,Pertussis(Acell),Tetanus Vaccine 0.5 ML Syringe IM ONE (17:07)
[2022-11-10 17:09] VITALS: BP 147/80; PULSE 88
[2022-11-10] MEDS ORDERED: Acetaminophen/HYDROcodone 325-10 MG Tab PO ONE (18:49)
[2022-11-10] MEDS ORDERED: Ondansetron 4 MG Tab.DIS PO ONE (18:49)
[2022-11-10] MEDS ORDERED: Lidocaine 1% with EPINEPHrine 1:100,000 20 ML MDV INJECT ONE (19:17)
[2022-11-10] MEDS ORDERED: Bacitracin Oint 1 GM U/D Packet TOP ONE (20:28)
== END 2022-11-10 20:44 | disposition home or self-care (01) ==
LOC: DL.ED 16:49
DX: S06.0X0A Concussion without loss of consciousness, initial encounter (principal); S01.81XA Laceration without foreign body of other part of head, initial encounter; S61.411A Laceration without foreign body of right hand, initial encounter; I89.8 Other specified noninfective disorders of lymphatic vessels and lymph nodes; J44.9 Chronic obstructive pulmonary disease, unspecified; K21.9 Gastro-esophageal reflux disease without esophagitis; E66.9 Obesity, unspecified; Z68.30 Body mass index [BMI] 30.0-30.9, adult; Z79.899 Other long term (current) drug therapy; Z68.36 Body mass index [BMI] 36.0-36.9, adult; Z23 Encounter for immunization; W01.0XXA Fall on same level from slipping, tripping and stumbling without subsequent striking against object, initial encounter
CPT/HCPCS: 12002; 12014; 70450; 70486; 72125; 90471; 90715; 99283; A9270; J3490

== ENCOUNTER 2023-02-06 23:50 | Inpatient (IN) | payer MEDICARE, OTHER ==
[2023-02-07] MEDS ORDERED: Iopamidol 612 MG/ML 100 ML Bottle IVPUSH ONE (00:15)
[2023-02-07] MEDS ORDERED: Sodium Chloride 0.9% 500 ML IV ONE (00:16)
[2023-02-07 00:18] LABS: HEMATOCRIT 32.5 % (40.0-54.0); HEMOGLOBIN 10.1 g/dL (14.0-18.0); MEAN CORPUSCULAR HEMOGLOBIN 27.1 pg (27.0-34.0); MEAN CORPUSCULAR HGB CONC 31.1 g/dL (33.0-35.0); MEAN CORPUSCULAR VOLUME 87.1 fL (80-100); PLATELET COUNT,PLT 315 10^3/uL (150-450); RED BLOOD CELL COUNT 3.73 10^6/uL (4.6-6.2); WHITE BLOOD CELL COUNT,WBC 11.2 10^3/uL (5.0-10.0)
[2023-02-07 00:22] LABS: BASOPHILS PERCENT AUTO 0.2 % (0.0-1.0); EOSINOPHILS PERCENT AUTO 0.8 % (1.0-3.0); LYMPHOCYTES PERCENT AUTO 10.9 % (20.5-50.1); MONOCYTES PERCENT AUTO 7.3 % (2-8); NEUTROPHILS PERCENT AUTO 80.8 % (42.2-75.2)
[2023-02-07] MEDS ORDERED: Albuterol/Ipratropium 3.0-0.5 MG/3 ML Neb Soln NEB ONE (00:25)
[2023-02-07 00:40] LABS: ALANINE AMINOTRANSFERASE,ALT 25 U/L (16-63); ALBUMIN 2.8 g/dL (3.4-5.0); ALKALINE PHOSPHATASE 92 U/L (46-116); ANION GAP 12.8 mEq/L (7-13); ASPARTATE AMNIOTRANSFERASE,AST 17 U/L (15-37); BILIRUBIN TOTAL 0.3 mg/dL (0.2-1.0); BLOOD UREA NITROGEN,BUN 48 mg/dL (7-18); BUN/CREATININE RATIO 32.4 (No establ ref range); CALCIUM 8.4 mg/dL (8.5-10.1); CARBON DIOXIDE,CO2 30 mmol/L (21-32); CHLORIDE,CL 107 mmol/L (98-107); CREATININE 1.48 mg/dL (0.70-1.30); GLUCOSE RANDOM 167 mg/dL (70-99); POTASSIUM,K 4.8 mmol/L (3.5-5.1); PROTEIN TOTAL,TP 6.2 g/dL (6.4-8.2); SODIUM,NA 145 mmol/L (136-145)
[2023-02-07 00:43] LABS: A/G RATIO 0.82; ESTIMATED GFR 50 mL/min (>=60)
[2023-02-07 00:48] LABS: LYMPHOCYTES PERCENT MAN 12 % (20-50); MONOCYTES PERCENT MAN 5 % (2-8); SEG NEUTROPHILS PERCENT MAN 83 % (42-75)
[2023-02-07] MEDS ORDERED: Norepinephrine Bit/D5W Premix 250 ML ONE (00:52)
[2023-02-07 01:07] LABS: LACTIC ACID 2.2 mmol/L (0.4-2.0)
[2023-02-07] MEDS ORDERED: Sodium Chloride 0.9% 1,000 ML IV STA (02:12)
[2023-02-07] MEDS ORDERED: Piperacillin/Tazobactam 3.375 GM in Sodium Chloride 0.9% 100 ML IV ONE (02:15)
[2023-02-07] MEDS ORDERED: Ondansetron 4 MG Tab.DIS PO PRN (02:21)
[2023-02-07] MEDS ORDERED: Acetaminophen 325 MG Tab PO PRN (02:21)
[2023-02-07 02:23] LABS: APPEARANCE,URINE CLEAR (CLEAR); BILIRUBIN,URINE NEGATIVE (NEGATIVE); COLOR,URINE YELLOW (YELLOW); GLUCOSE,URINE NEGATIVE (NEGATIVE); KETONES,URINE NEGATIVE (NEGATIVE); LEUKOCYTE ESTERASE,URINE NEGATIVE (NEGATIVE); NITRITE,URINE NEGATIVE (NEGATIVE); OCCULT BLOOD,URINE NEGATIVE (NEGATIVE); PH,URINE 5.5 (5.0-9.0); PROTEIN,URINE NEGATIVE (NEGATIVE); UROBILINOGEN,URINE 0.2 mg/dL (0.2-1.0)
[2023-02-07] MEDS ORDERED: Sodium Chloride 0.9% 50 ML ONE (02:23)
[2023-02-07] MEDS: Sodium Chloride 0.9% 10 ML Syringe FLUSH PRN ×3 (02:32→20:26)
[2023-02-07] MEDS: Norepinephrine Bit/D5W Premix 250 ML IV SCH ×2 (03:50)
[2023-02-07 06:45] LABS: ANION GAP 13.6 mEq/L (7-13); BASOPHILS PERCENT AUTO 0.1 % (0.0-1.0); CALCIUM 8.2 mg/dL (8.5-10.1); CREATININE 1.22 mg/dL (0.70-1.30); EST CRCL DRUG DOSING (CG) 53.93 mL/min; HEMATOCRIT 29.4 % (40.0-54.0); HEMOGLOBIN 9.2 g/dL (14.0-18.0); MEAN CORPUSCULAR HEMOGLOBIN 27.1 pg (27.0-34.0); MEAN CORPUSCULAR HGB CONC 31.3 g/dL (33.0-35.0); MEAN CORPUSCULAR VOLUME 86.5 fL (80-100); MONOCYTES PERCENT AUTO 8.3 % (2-8); NEUTROPHILS PERCENT AUTO 82.6 % (42.2-75.2); PLATELET COUNT,PLT 291 10^3/uL (150-450); POTASSIUM,K 4.6 mmol/L (3.5-5.1); WHITE BLOOD CELL COUNT,WBC 8.5 10^3/uL (5.0-10.0)
[2023-02-07] MEDS: Sodium Chloride 0.9% 1,000 ML IV SCH ×2 (10:50→20:25)
[2023-02-07] MEDS: Montelukast 10 MG Tab PO SCH (11:57)
[2023-02-07] MEDS: Albuterol/Ipratropium 3.0-0.5 MG/3 ML Neb Soln NEB SCH ×2 (12:05→17:25)
[2023-02-07] MEDS: BUDESONIDE INH SCH ×2 (12:20→17:33)
[2023-02-07] MEDS: FORMOTEROL INH SCH ×2 (12:20→17:33)
[2023-02-07] MEDS ORDERED: Bisacodyl 10 MG Supp RECTAL PRN (23:20)
[2023-02-07] MEDS: Polyethylene Glycol 3350 Powder 17 GM Packet PO SCH (23:46)
[2023-02-07] MEDS ORDERED: Temazepam 15 MG Cap PO PRN (23:56)
[2023-02-08] MEDS: Albuterol/Ipratropium 3.0-0.5 MG/3 ML Neb Soln NEB SCH ×3 (00:47→11:20)
[2023-02-08] MEDS: Sodium Chloride 0.9% 10 ML Syringe FLUSH PRN ×3 (01:28→08:56)
[2023-02-08] MEDS: HYDROmorphone 0.5 MG/0.5 ML Syringe IVPUSH PRN ×2 (01:28→03:49)
[2023-02-08] MEDS: Polyethylene Glycol 3350 Powder 17 GM Packet PO SCH (08:55)
[2023-02-08] MEDS: Montelukast 10 MG Tab PO SCH (08:56)
[2023-02-08] MEDS ORDERED: DULoxetine 30 MG Cap PO SCH (09:00)
[2023-02-08] MEDS: FORMOTEROL INH SCH (09:01)
[2023-02-08] MEDS: BUDESONIDE INH SCH (09:01)
[2023-02-08] MEDS ORDERED: Pantoprazole 40 MG Tab.CR PO SCH (11:56)
[2023-02-08 12:18] LABS: HEMOGLOBIN 8.7 g/dL (14.0-18.0); MEAN CORPUSCULAR HEMOGLOBIN 27.7 pg (27.0-34.0); MEAN CORPUSCULAR HGB CONC 32.2 g/dL (33.0-35.0); RED BLOOD CELL COUNT 3.14 10^6/uL (4.6-6.2); WHITE BLOOD CELL COUNT,WBC 9.6 10^3/uL (5.0-10.0)
[2023-02-08 12:28] LABS: ANION GAP 12.2 mEq/L (7-13); CALCIUM 8.7 mg/dL (8.5-10.1); CREATININE 1.1 mg/dL (0.70-1.30); EST CRCL DRUG DOSING (CG) 59.81 mL/min; POTASSIUM,K 4.2 mmol/L (3.5-5.1)
[2023-02-08 13:26] VITALS: BP 140/78; PULSE 90
== END 2023-02-08 13:20 | disposition home or self-care (01) | DRG 315 ==
LOC: DL.ED 23:50 → DL.MS 02-07 02:21
PROVIDERS: ADMIT Hospitalist; ATTEND Hospitalist
PROC: 3E033XZ Introduction of Vasopressor into Peripheral Vein, Percutaneous Approach (ICD-10-PCS; principal; 2023-02-07)
DX: I95.0 Idiopathic hypotension (principal); D62 Acute posthemorrhagic anemia; K92.2 Gastrointestinal hemorrhage, unspecified; R09.02 Hypoxemia; J44.9 Chronic obstructive pulmonary disease, unspecified; K21.9 Gastro-esophageal reflux disease without esophagitis; E66.9 Obesity, unspecified; M19.90 Unspecified osteoarthritis, unspecified site; G89.29 Other chronic pain; M54.9 Dorsalgia, unspecified; E78.5 Hyperlipidemia, unspecified; Z79.899 Other long term (current) drug therapy; Z98.890 Other specified postprocedural states; Z87.891 Personal history of nicotine dependence; Z68.37 Body mass index [BMI] 37.0-37.9, adult
CPT/HCPCS: 36415; 71260; 74177; 80053; 81003; 83605; 83880; 84484; 85025; 87040 ×2; 93005; 96365; 96366; 99285; J7030; Q9967; 51701; 80048; 85027; 93010; 94640; 99222; 99239; 99284; A9270-GY; J1170; J2543; J3370; J3490; J7050; J7620-GY

== ENCOUNTER 2023-11-15 15:23 | Emergency (ER) | payer MEDICARE, OTHER | END 2023-11-15 15:29 | disposition EXP | LOC: DL.ED 15:23 | DX: I46.9 Cardiac arrest, cause unspecified (principal); J44.9 Chronic obstructive pulmonary disease, unspecified; K21.9 Gastro-esophageal reflux disease without esophagitis; E66.9 Obesity, unspecified; Z79.899 Other long term (current) drug therapy | CPT/HCPCS: 99285 ==